=== PATIENT | female | born 1960 | race Caucasian/White ===

== ENCOUNTER → 2018-01-28 | Outpatient (CLI) | payer OTHER | LOC: FIMAGING 10:59 | PROVIDERS: ATTEND Psychiatry & Neurology Neurology | DX: M54.16 Radiculopathy, lumbar region (principal); G95.0 Syringomyelia and syringobulbia ==

== ENCOUNTER 2018-04-05 09:09 | Day surgery (SDC) | payer OTHER ==
[2018-04-05] MEDS ORDERED: LR 1,000 ML IV ONE (10:31)
[2018-04-05] MEDS ORDERED: ceFAZolin 2 GM/DEXTROSE 100 ML IV ONE (10:48)
--- NOTE | 2018-04-05 10:48 | PDHPUP ---
History & Physical Update H&P update statement: This history and physical update is based on an assessment of the patient which was completed after admission or registration (within 24 hours), but prior to the surgery/procedure. H&P update: H&P reviewed & patient examined, no change in patient's condition since H&P completed ([facility] O2 sat was 97% in pre op)
[2018-04-05] MEDS ORDERED: BUPIVACAINE 0.5% 30 ML SDV ONE (10:50)
[2018-04-05] MEDS ORDERED: MIDAZOLAM 2 MG/2 ML VIAL IVP ONE (10:51)
--- NOTE | 2018-04-05 10:53 | POSTOPPROG ---
Post Op Note Date of Operation: 04/05/18 Surgeon: Willi Gonzalez Passenger Elevator Operator: none Anesthesiologist: Austin Cormier Anesthesia: Epidural Pre-op Diagnosis: Retained plate and screws left distal radius Post-op Diagnosis: same Indication: tendon irritation Procedure: excision plate and screws Findings: same Inf/Abcess present in the surg proc area at time of surgery?: No Depth: Deep Incisional (Fascial) EBL: Minimal Total fluids administered: 600cc Specimen(s): Plate and screws to patient
--- NOTE | 2018-04-05 10:55 | PDANEPAE ---
ANE History of Present Illness retained painful left wrist hw ANE Past Medical History - Cardiovascular History Hx Hypertension: Yes Hx Arrhythmias: No Hx Chest Pain: No Hx Coronary Artery / Peripheral Vascular Disease: No Hx CHF / Valvular Disease: No Hx Palpitations: No Cardiovascular History Comment: HYPERLIPIDEMIA - Pulmonary History Hx COPD: Yes Hx Asthma/Reactive Airway Disease: No Hx Recent Upper Respiratory Infection: No Hx Oxygen in Use at Home: No Hx Sleep Apnea: No Sleep Apnea Screening Result - Last Documented: Negative Pulmonary History Comment: CHILDHOOD CHRONIC BRONCHITIS - Neurologic History Hx Cerebrovascular Accident: No Hx Seizures: Yes Hx Dementia: No Neurologic History Comment: SEIZURES A TEEN. MIGRAINES - Endocrine History Hx Diabetes: No Hypothyroid: Yes Hyperthyroid: No Obesity: no Endocrine History Comment: HYPOTHYROID. THYROID NODULE - Renal History Hx Renal Disorders: No - Liver History Hx Hepatic Disorders: No Hepatic History Comment: RICARDO - Neurological & Psychiatric Hx Hx Neurological and Psychiatric Disorders: Yes Neurological / Psychiatric History Comment: ANXIETY/DEPRESSION - Cancer History Hx Cancer: Yes Cancer History Comment: BASAL CELL - Congenital Disorder History Hx Congenital Disorders: No - GI History Hx Gastrointestinal Disorders: Yes Gastrointestinal History Comment: REFLUX - Other Health History Other Health History: CHRONIC PAIN - Chronic Pain History Chronic Pain: Yes (BACK PAIN) - Surgical History Prior Surgeries: SPINE - THORACIC -SYRINX CYST. LUMBAR - FUSION. L SHOULDER. TONSILLECTOMY. APPENDECTOMY. CHOLECYSTECTOMY. HYSTERECTOMY. BREAST LUMPECTOMY R ANE Review of Systems Review of systems is: negative Review of Systems: - Exercise capacity Exercise capacity: >=4 METS METS (RN): 4 METS ANE Patient History - Allergies Allergies/Adverse Reactions: No Known Allergies Allergy (Verified 05/10/16 15:02) - Home Medications Home Medications: Acetaminophen/ASA/Caffeine [Excedrin Tablet (*)] 2 tab PO BID 06/24/15 [Last Taken 03/29/18] Amitriptyline HCl [Elavil 10 mg (*)] 20 mg PO HS 06/24/15 [Last Taken 04/04/18] Diazepam [Valium 10 MG (*)] 5 - 10 mg PO DAILY PRN 06/24/15 [Last Taken 03/31/18 ] Omeprazole Magnesium [Prilosec Otc] 40 mg PO DAILY 06/24/15 [Last Taken 04/05/18 ] Pseudoephedrine HCl [Sudafed 30mg (OTC)] 30 mg PO DAILY PRN 06/24/15 [Last Taken 04/05/18] Simethicone [GAS-X] 160 mg PO DAILY PRN 06/24/15 [Last Taken 03/29/18] Topiramate [Topamax 25MG (*)] 25 mg PO BID 06/24/15 [Last Taken 04/05/18] Gabapentin 900 mg PO BID 03/14/16 [Last Taken 04/05/18] Levothyroxine [Synthroid 25 mcg (*)] 50 mcg PO DAILY06 03/14/16 [Last Taken 09/17] Albuterol 03/29/18 [Last Taken 04/05/18] Imitrex 03/29/18 [Last Taken 03/29/18] Venlafaxine HCl 03/29/18 [Last Taken 04/05/18] - NPO status NPO Status: no food or drink >8 hours NPO Since - Liquids (Date): 04/05/18 NPO Since - Liquids (Time): 06:00 NPO Since - Solids (Date): 04/04/18 NPO Since - Solids (Time): 17:30 - Anes Hx Anes Hx: no prior problems - Smoking Hx Smoking Status: Former smoker Marijuana use: No - Alcohol Use Alcohol Use: Heavy (12/wk) - Family Anes Hx Family Anes Hx: none ANE Labs/Vital Signs - Vital Signs Vital Signs: reviewed preoperatively; see RN documention for details Blood Pressure: 132/80 Heart Rate: 60 Respiratory Rate: 16 O2 Sat (%): 97 Height: 165.1 cm Weight: 60.328 kg ANE Physical Exam - Airway Neck exam: FROM Mallampati Score: Class 2 Mouth exam: normal dental/mouth exam - Pulmonary Pulmonary: no respiratory distress - Cardiovascular Cardiovascular: regular rate and rhythym - ASA Status ASA Status: II ANE Anesthesia Plan Anesthesia Plan: MAC
[2018-04-05] MEDS ORDERED: fentaNYL 100 MCG/2 ML INJ ONE ×2 (11:05→11:37)
[2018-04-05] MEDS ORDERED: LIDOCAINE 2% 2 ML INJ ONE (11:05)
[2018-04-05] MEDS ORDERED: PROPOFOL/EMULSION 500 MG/50 ML BOTTLE IV ONE (11:06)
[2018-04-05] MEDS ORDERED: HYDROGEN PEROXIDE 236 ML BOTTLE TP ONE (11:40)
[2018-04-05] MEDS ORDERED: NALOXONE HCL 0.4 MG/ML INJ IVP PRN (12:07)
[2018-04-05] MEDS ORDERED: fentaNYL 100 MCG/2 ML INJ IVP PRN (12:07)
[2018-04-05] MEDS ORDERED: oxyCODONE IR 5 MG TAB PO PRN (12:07)
[2018-04-05] MEDS ORDERED: ACETAMINOPHEN 500 MG TAB PO PRN (12:07)
[2018-04-05] MEDS ORDERED: HYDROmorphONE/DILAUDID 2 MG/ML INJ IVP PRN (12:07)
[2018-04-05] MEDS ORDERED: ONDANSETRON 4 MG/2 ML VIAL IVP PRN (12:07)
--- NOTE | 2018-04-05 12:08 | POSTANESTH ---
Post Anesthetic Evaluation Cardiovascular Status: Normal, Stable Respiratory Status: Normal, Stable Level of Consciousness/Mental Status: Can Participate in Eval Pain Control: Adequate, Prn Tx Ordered Nausea/Vomiting Control: Adequate, Prn Tx Ordered Complications Possibly Related to Anesthesia: None Noted
--- NOTE | 2018-04-05 12:47 | GOP ---
DATE OF OPERATION: 04/05/2018 SURGEON: Willi Gonzalez MD PREOPERATIVE DIAGNOSIS: Left dorsal retained plate and screws at the distal radius. POSTOPERATIVE DIAGNOSIS: Left dorsal retained plate and screws at the distal radius, complete adhesi on of the extensor pollicis longus tendon, and also significant dorsal capsular scarring. PROCEDURE PERFORMED: Excision of left dorsal distal radial plate and screws, tenolysis of extensor p ollicis longus tendon, and also dorsal capsulectomy for extension contracture. FINDINGS: INDICATIONS: Tenderness and crepitation of the extensor tendons from plate prominence and also limit ation of wrist and thumb range of motion. DESCRIPTION OF PROCEDURE: Under general anesthesia, the patient's left arm was prepped and draped in the usual fashion, and with the arm tourniquet at 250 mmHg, the original surgical scar was reopened, skin flap was elevated, and subcutaneous tissues were reflected away from the extensor mechanism. T he extensor retinaculum was visualized. The extensor pollicis longus tendon was completely adherent along its course through the operative incision and by sharp dissection with a 15 blade. That was fr eed. The extensor carpi radialis longus and brevis were both being irritated by the underlying hardw are. The tendons were reflected and soft tissue removed from the surface of the plate, and then the plate was removed without difficulty. The extensor carpi radialis longus and brevis were mobilized r adially and ulnarly in order to expose the screws adequately, and then range of motion was tested. T he thumb range of motion was restored to full, but wrist range of motion was still limited in flexion . A dorsal capsulectomy was performed, and that fortunately freed the wrist so that full flexion and essentially full extension were then possible. Debridement of the radius was performed using a bone rongeur and osteotome and mallet. All bony overgrowth and sharp bone edges were removed where the p late and screws had been creating a nice smooth surface. Wound was irrigated with body temperature s mickey. Median, ulnar, and radial nerves were blocked at the mid third forearm, and additional local anesthetic was infiltrated at the operative area itself. A total of 20 cc of Marcaine was used. The skin and subcutaneous tissue were closed as a single layer using horizontal mattress sutures of 5-0 Prolene, and then a bulky soft pressure dressing was applied, followed by just a bulky soft dressing held in place with an Rob bandage. It was felt that splint immobilization might allow re-adhesion to form, limiting motion. Tourniquet deflation resulted in immediate pinking of the digits, and she wa s brought to the recovery area, where detailed postoperative instructions were given prior to dischar ge. A prescription for Percocet and Keflex was provided. Followup arrangements in the office for ab out a week postop for dressing and suture removal, remobilization exercises, and splint wear when up and around as need be. /[id number]/MODL
--- NOTE | 2018-04-05 12:47 | GOP ---
DATE OF OPERATION: 04/05/2018 SURGEON: Willi Gonzalez MD PREOPERATIVE DIAGNOSIS: Retained dorsal radial plate and screws with extensor tendon crepitation sec ondary to the presence of the hardware. POSTOPERATIVE DIAGNOSIS: Extensor pollicis longus and dorsal capsular adhesions, retained left dorsa l plate and screws, and bony overgrowth. PROCEDURE PERFORMED: Excision of plate and screws, debridement of bone prominences and bony overgrow th, and also extensor pollicis longus tenolysis and dorsal capsulectomy. FINDINGS: INDICATIONS: This patient had pain and crepitation from the interference of the plate and screws wit h the extensor tendons, especially the extensor carpi radialis longus and brevis, and had limitation of thumb and wrist motion. DESCRIPTION OF PROCEDURE: Under general anesthesia, the patient's left arm was prepped and draped in the usual fashion, and through the original surgical scar, skin flap was elevated and tied back. Th e extensor pollicis longus tendon was completely adherent through the operative area, and that was mo bilized by sharp dissection, and fortunately that restored full range of motion of the thumb. The pl ate and screws were removed without difficulty, and sharp edges and bony overgrowth after plate remov al were smoothed with a bone rongeur, creating a nice smooth surface at the previous operative area. Range of motion of the wrist was still limited. A dorsal capsulectomy was performed, restoring full range of motion of the wrist in flexion. The wound was irrigated profusely with body temperature sa line, 0.5% plain Marcaine was instilled in the operative area, and also median, ulnar, and radial ner ves were blocked at the mid third forearm. A total of 20 cc of 0.5% plain Marcaine were used. Skin was closed with horizontal mattress sutures of 5-0 Prolene, then a bulky soft pressure dressing was a pplied and held in place with an Rob bandage. It was decided that splint immobilization would be det rimental to maintaining wrist and thumb range of motion. She was brought to the recovery area in goo d condition. Tourniquet deflation had resulted in immediate pinking of the digits, and she was given detailed postoperative instructions prior to discharge, a prescription for Percocet and Keflex. She had been given 2 g of Ancef prior to commencement of surgery. Followup arrangements in the office f or about a week postop for dressing and suture removal. Remobilization exercises and Velcro strap sp lint as need be for when up and around. /[id number]/MODL
[2018-04-05 12:53] VITALS: BP 149/88
== END 2018-04-05 13:05 | disposition home or self-care, planned readmission (81) ==
LOC: FSGY 09:09
PROVIDERS: ATTEND Specialist
PROC: 0PPJ04Z Removal of Internal Fixation Device from Left Radius, Open Approach (ICD-10-PCS; principal; 2018-04-05 11:00)
DX: T84.84XA Pain due to internal orthopedic prosthetic devices, implants and grafts, initial encounter (principal); I10 Essential (primary) hypertension; E78.5 Hyperlipidemia, unspecified; J44.9 Chronic obstructive pulmonary disease, unspecified; E03.9 Hypothyroidism, unspecified
CPT/HCPCS: J2250; J2704; J3010